=== PATIENT | female | born 1960 | race Caucasian/White ===

== ENCOUNTER 2020-04-17 13:58 | Outpatient (CLI) | payer OTHER, SELFPAY ==
--- NOTE | 2020-04-17 | ECHO_ITS ---
Patient Info Name: Yvrose Medrano Age: 60 years : 1960 Gender: Female Ht: 62 in Wt: 195 lbs BSA: 2.01 m2 HR: 95 bpm BP: 146 / 98 mmHg Heart Rhythm: Sinus Rhythm Technical Quality: Fair Exam Date: 04/17/2020 3:05 PM Exam Location: [facility] Patient Status: Outpatient Admit Date: 04/17/2020 Staff Ordering Physician: Yovanny Ramos MD [employer] Professional: Ena Christie RDCS Attending Provider: Yovanny Ramos MD Referring Physician: Richard MARTINEZ; Exam Type: CA echo doppler color flow Study Info Indications C50.411 - Malignant neoplasm of upper-outer quadrant of right female breast Complete two-dimensional, color flow and Doppler transthoracic echocardiogram is performed. Summary 1. Left ventricular chamber dimension is mildly enlarged. 2. Left ventricular systolic function is normal, estimated at 55-60%. 3. There is no increased left ventricular wall thickness. 4. Left ventricular septal wall motion is normal. 5. The left ventricular diastolic function is normal. 6. Global longitudinal strain is normal at -19 %. 7. Left atrial chamber dimension is mildly enlarged. 8. There is mild mitral valve regurgitation. 9. There is mild tricuspid valve regurgitation. Left Ventricle Left ventricular chamber dimension is mildly enlarged. Left ventricular systolic function is normal, estimated at 55-60%. There is no increased left ventricular wall thickness. Left ventricular septal wall motion is normal. The left ventricular diastolic function is normal. Global longitudinal strain is normal at -19 %. Right Ventricle Right ventricular chamber dimension is normal. Right ventricular systolic function is normal. Left Atria Left atrial chamber dimension is mildly enlarged. Right Atria Right atrial chamber dimension is normal. Atrial Septum Intact interatrial septum visualized by color flow imaging. Aortic Valve The aortic valve is trileaflet. There is mild aortic valve sclerosis. There is no aortic valve stenosis. There is trace aortic valve regurgitation. Pulmonic Valve The pulmonic valve is normal. There is no pulmonic valve stenosis. There is trace pulmonic regurgitation. Mitral Valve The mitral valve has normal leaflets. There is no mitral valve stenosis. There is mild mitral valve regurgitation. Tricuspid Valve The tricuspid valve leaflets are normal. There is no significant tricuspid valve stenosis. There is mild tricuspid valve regurgitation. No pulmonary hypertension, estimated pulmonary arterial systolic pressure is 33 mmHg. Pericardium/Pleural The pericardium appears normal. There is no pericardial effusion. Inferior Vena Cava Normal inferior vena cava with >50% collapse upon inspiration consistent with elevated right atrial pressure, 10 mmHg. Aorta The aortic root size at the sinus of Valsalva is normal. The prox ascending aorta size is normal. Left Ventricular Outflow Tract Name Value Normal LVOT 2D LVOT Diameter 1.9 cm LVOT Doppler LVOT Peak Gradient 3 mmHg LVOT Mean Gradient 2 mmHg
== END 2020-04-17 13:59 | disposition home or self-care (01) ==
LOC: ANHCARD 14:00
PROVIDERS: PCP Emergency Medicine; Visit Provider Internal Medicine Medical Oncology
DX: C50.411 Malignant neoplasm of upper-outer quadrant of right female breast (principal); Z17.0 Estrogen receptor positive status [ER+]
CPT/HCPCS: 93306

== ENCOUNTER 2022-01-11 10:00 | Outpatient (RCR) | payer OTHER, SELFPAY ==
--- NOTE | 2021-10-19 10:11 | PTOPEVAL ---
PHYSICAL THERAPY EVALUATION AND PLAN OF CARE 10-19-21 Thank you for referring Yvrose Medrano to [facility] for the diagnosis of vestibular rehab. She is scheduled to be seen for therapy? 1-2 x/week for 6 weeks. Please review, sign, date and return this plan of care SHALINI. I agree with and certify that the following plan of care is medically necessary. Referring Physician Date Attending Provider: Cathy Penaloza NP PT Outpatient Evaluation Document 10/19/21 09:01 LY (Rec: 10/19/21 10:11 LY [id number]) Past Medical History Source of Past Medical History Patient Neurological History Hx Neurological Disorders No Significant History Cardiovascular History Hx Cardiac Disorders No Significant History Respiratory History Hx Respiratory Disorders No Significant History Gastrointestinal History Hx Gastrointestinal Disorders No Significant History Genitourinary History Hx Genitourinary Disorders No Significant History Musculoskeletal History Hx Other Musculoskeletal Disorders Yes: neck and shoulder pain with long sitting at work Endocrine History Hx Hypothyroidism Yes: monitoring, using supplements to manage HEENT History Hx Deviated Septum Yes: surgery Hx Other HEENT Disorders Yes: sinus issues; ear issues as child Other History Hx Cancer Yes: breast cancer 2x, B mastectomy, radiation & chemotherapy Hx Chemotherapy Yes Hx Radiation Therapy Yes Evaluation Information Problem Diagnosis vestibular rehab Onset May 2021 Prior Level of Function Activity Level (Last 3 Months) 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 Hand Dominance Right Activity of Daily Living Ability Independent Indoor/Home Mobility Independent Community Mobility Independent Stairs Ability Independent Functional Cognition (Planning, Shopping Independent , Taking Medications) Cooking Yes Cleaning Yes Laundry Yes Shopping Yes Driving Yes Comments Additional Prior Level of Function active lifestyle, play drums, Comments do regular fitness exercise and walking Pain Assessment Timing of Pain Assessment Timing of Pain Assessment Assessment Self Report Self Report Pain Level 0 Pain Score Pain Score 0: Self Report Additional Pain Score Comments reports with work, sometimes
--- NOTE | 2021-11-29 16:16 | PTOPEVAL ---
PHYSICAL THERAPY RE-EVALUATION AND UPDATED PLAN OF CARE 11-29-21 Refer to the clinical summary below for her status today, compared to the initial evaluation. The goals were partially achieved. Continue PT treatment 1x/wk for 6 weeks. Thank you for referring Yvrose Medrano to [facility].? Please review, sign, date and return this updated plan of care [facility]. I agree with and certify that the following plan of care is medically necessary. Referring Physician Date Attending Provider: Cathy Penaloza NP *PT Outpatient Re-Evaluation Document 11/29/21 15:29 LY (Rec: 11/29/21 16:16 LY [id number]) Subjective Information Yvrose reports: feel like Query Text:As Reported By Patient/ still off balance, when walk, Family veer to the L; have not had any falls; do not have any vertigo or spinning, have some lightheaded like feelings; to have MRI brain scan in December; completed antibiotics for sinus infections about 1 week ago; recent dental work due to filling of tooth cracked and replaced- no infection; reading tolerance about 30 min , then eyes start to jump and have to rest eyes; Pain Assessment Timing of Pain Assessment Timing of Pain Assessment Assessment Self Report Self Report Pain Level 0 Pain Score Pain Score 0: Self Report Vestibular Evaluation Vestibular Testing Vestibular Testing Comments in standing: -- head still, eyes track R/L x 16 reps, then had loss of balance --head still, eyes track up/ down x 20 reps, then had loss of balance --gaze stabilization walk forward/back with loss balance --gaze stabilization with head turn R/L 4 reps then loss balance --gaze stabilization with head turn up/down x 10 reps then loss of balance positions herself with wide base of support and able to step to regain her balance supine/sit/stand and pao
--- NOTE | 2022-01-11 10:59 | PTOPEVAL ---
PHYSICAL THERAPY DISCHARGE 01-11-22 Refer to the clinical summary below, for her status today, compared to the last reevaluation. The goals were achieved. Yvrose will be discharged from PT services at this time. And is to continue with her Home Exercise program. Thank you for referring Yvrose Medrano to [facility]. Please review, sign, date and return this Discharge Report SHALINI. I agree with and certify that the following plan of care is medically necessary. Referring Physician Date Attending Provider: Cathy Penaloza NP Assessment Status Discharge Subjective Information Yvrose reports: a little Query Text:As Reported By Patient/ better, but still have Family dizziness; about 75% of the way there; doing home exercises; sinus' feel OK today; to see neurologist on February 04; oncologist took me off tamoxifen, to see if that is causing dizziness, been off about one week- not sure if any better or not; walking is better- straighter and not as off balance; no eyes jumping with reading; Pain Assessment Timing of Pain Assessment Timing of Pain Assessment Assessment Self Report Self Report Pain Level 0 Pain Score Pain Score 0: Self Report Vestibular Evaluation Vestibular Testing Vestibular Testing Comments reports: right now feel pretty good, but tiny lightheaded ; over the past week, have been light headed, not have dizzy/head spin feeling; standing: -eye tracking R/L and up/down x 20 reps without loss of balance and no s/s -gaze stabilization with head R/L and up/down without loss of balance and no s/s; walk 50' with head motions R/L and up/down x 5 reps each; single leg standing R and L- 4 reps, unsteady with 3-10 second holds; -standing hip abduction, extension with green theraband R and L x 10 reps with 1 UE hold - tandem daly
== END 2022-01-14 10:34 | disposition home or self-care (01) ==
LOC: ANHPT 10:00
PROVIDERS: PCP Emergency Medicine
DX: H81.399 Other peripheral vertigo, unspecified ear (principal)
CPT/HCPCS: 97110; 97162

== ENCOUNTER → 2022-09-27 09:24 | Outpatient (CLI) | payer OTHER, SELFPAY ==
--- NOTE | ~2022-09-27 | US_ITS ---
EXAMINATION: US thyroid DATE: 09/27/2022 09:49 INDICATION: Thyroid nodule. TECHNIQUE: Multiple ultrasound images of the thyroid were obtained. COMPARISON: Ultrasound 09/17/2017 FINDINGS: The right thyroid lobe measures 3.7 x 2.4 x 0.9 cm. The left thyroid lobe measures 3.6 x 1.5 x 1.1 c m. In the left thyroid lobe, there is a 6 mm solid, hypoechoic, wider than tall nodule with smooth m argin without echogenic foci (TI-RADS TR4). In the thyroid isthmus, there is a 7 mm solid, hypoechoic , wider than tall nodule with ill-defined margin without echogenic foci (TR4). In the right thyroid l obe, there is a 7 mm, solid, hypoechoic, wider than tall nodule with ill-defined margin without echog enic foci (TR4). IMPRESSION: 1. Small thyroid nodules, likely not clinically significant. No follow-up is needed. Reviewed, dictated and finalized at location A. IMPRESSION: 1. Small thyroid nodules, likely not clinically significant. No follow-up is ne eded.
== END ==
PROVIDERS: PCP Nurse Practitioner Family; Visit Provider Nurse Practitioner Family
DX: E04.2 Nontoxic multinodular goiter (principal)
CPT/HCPCS: 76536

== ENCOUNTER 2023-12-12 09:00 | Outpatient (RCR) | payer OTHER, SELFPAY ==
--- NOTE | 2023-10-31 09:57 | OPREHPOC ---
Outpatient Therapy Plan of Care This is a Multidisciplinary Plan of Care that may contain components documented by all disciplines (PT, OT, and ST.) PT Problem 1 PT Problem #1 Knowledge Deficit PT Goal 1 Goal 1* indep with HEP 2*demonstrate good safety awareness with mobility PT Problem 2 PT Problem #2 Impaired Functional Mobil PT Goal 1 Goal pt perform without loss of balance or wobblin* single leg standing R x 6 seconds 2* single leg standing L x 6 seconds 3* 360' x 1 to R 4* 360' x 1 to L 5* stand with small base of support x 10 seconds 6* Edwards balance score of 52/56 7* further testing of vestibular system and BPPV as indicated
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
--- NOTE | 2023-12-12 09:44 | PTOPDC ---
Assessment and note entered by Kailyn Gutierrez, PT Discharge Information Assessment Status Discharge Diagnosis dizziness, BPPV Onset about 1 year ago Subjective Information have been doing good, balance is better; today a little off due to weather change, L ear feels off; have been doing the exercises at home; Reported Pain Level Pain Score 0: Self Report Assessment PT Clinical Summary Yvrose has received 4 PT sessions. Compared to the initial evaluation: improved with Edwards score from 43 to 50/56; education completed for HEP and safety awareness. She has not had any falls; Continues to have issues with single leg standing and eyes closed activities. The goals were partially met. Discharge PT services. She is to continue with her HEP and safety techniques. Plan of Care PT Services Indicated No
== END 2023-12-12 10:10 | disposition home or self-care (01) ==
LOC: ANHPT 09:00
PROVIDERS: PCP Nurse Practitioner Family
DX: H81.11 Benign paroxysmal vertigo, right ear (principal)
CPT/HCPCS: 97110; 97112; 97161; 97530

== ENCOUNTER 2024-01-30 10:07 | Outpatient (CLI) | payer OTHER, SELFPAY ==
--- NOTE | ~2024-01-30 | DEXA_ITS ---
Bone Density Report Name: JON RICHARDSON Age: 63 Sex: Female Ethnicity: White Date of : 1960 Indication: postmenopausal; screening for osteoporosis; cancer; Referring Provider: RAMONA, LEONOR Gtz Study: Bone densitometry was performed. Exam Date: January 30, 2024 Accession number: [id number] Bone Density: Region BMD T-score Z-score Classification AP Spine(L1-L4) 0.953 -0.9 0.8 Normal Femoral Neck (Left) 0.722 -1.1 0.3 Osteopenia Total Hip (Left) 0.930 -0.1 1.0 Normal Femoral Neck (Right) 0.769 -0.7 0.7 Normal Total Hip (Right) 0.929 -0.1 1.0 Normal Total Hip Mean 0.930 -0.1 1.0 Normal World Health Organization criteria for BMD impression classify patients as: Normal (T-score at or above -1.0), Osteopenia (T-score between -1.0 and -2.5), or Osteoporosis (T-score at or below -2.5). Clinical Information Provided by Patient: Has used the following medications: Vitamin D Has the following medical conditions: Cancer Patient maximum height was 64 Menopause Age: 55 Drinks caffeinated beverages Onset of menses at age 16 Number of children 1 Impression: The patient has low bone mass, based on the Left Femoral Neck T-score. Discussion: BONE DENSITY IS LOW AT ONE OR MORE SKELETAL SITES. This patient's lowest T-score is low at one or more skeletal sites. It meets the World Health Organization's (WHO) criteria for ?low bone mass? (T-score between -1.0 and -2.5). The patient's 10-year risk of fracture as calculated by FRAX is less than the threshold where pharmacological therapy is recommended by the National Osteoporosis Foundation (NOF). However, all treatment decisions require clinical judgment and consideration of individual patient factors, including patient preferences, comorbidities, previous drug use, risk factors not captured in the FRAX model (e.g., frailty, falls, vitamin D deficiency, increased bone turnover, interval significant decline in bone density) and possible under or overestimation of fracture risk by FRAX. The patient should follow a healthful lifestyle (good nutrition with adequate calcium and vitamin D, and appropriate weight-bearing exercise). Follow-Up: Consider repeating this study in 2 to 3 years to reassess this patient's status, or sooner if there is some new clinical indication. Reported by: KO on 01/30/2024 10:45:00 AM. Reviewed, dictated and finalized at location AAndressa DOCKERY
== END 2024-01-30 10:08 | disposition home or self-care (01) ==
LOC: ANHIMG 10:10
PROVIDERS: PCP Emergency Medicine; Visit Provider Nurse Practitioner Family
DX: M81.0 Age-related osteoporosis without current pathological fracture (principal); M85.852 Other specified disorders of bone density and structure, left thigh
CPT/HCPCS: 77080

== ENCOUNTER 2024-03-30 15:30 | Outpatient (RCR) | payer OTHER, SELFPAY ==
--- NOTE | 2024-01-30 09:09 | OPREHPOC ---
Outpatient Therapy Plan of Care This is a Multidisciplinary Plan of Care that may contain components documented by all disciplines (PT, OT, and ST.) PT Problem 1 PT Problem #1 Knowledge Deficit PT Goal 1 Goal 1* indep with HEP 2* education on compression garment & lymphedema management PT Problem 2 PT Problem #2 Pain PT Goal 1 Goal 1* pt report pain rating at worst in R arm of 2/10 2* no tenderness reported with palpation over R forearm PT Problem 3 PT Problem #3 Impaired Lymphatic System PT Goal 1 Goal improve lymph flow and decrease lymphedema of both arms and trunk: circumferential measurement up to 40 cm from wrist 1* R 360 cm 2* L 355 cm with palpation, no firmness of tissue 3* R anterior forearm 4* L anterior forearm 5* with palpation over R upper trunk & axilla- minimal movement of tissue vertical measurement of fluid pocket lateral trunk 6* R 4 cm 7* L 3 cm
--- NOTE | 2024-01-30 09:09 | PTOPEVAL1 ---
Assessment and note entered by Kailyn Gutierrez, PT, CLT Evaluation Information Assessment Status Evaluation Diagnosis R UE lymphedema Onset Jan 2024 Subjective Information about one month ago- noticed some swelling in R hand; was playing tug of war with dog, the toy was pulled by dog and her R arm was twisted and jerked; next day back of hand was swollen and rings did not fit; is R handed. is not limited with activity, doing everything, but have annoying pain in arm and trunk. have never had any treatment for lymphedema or swelling in arm before. does arm exercises for fitness, 5# hand weights, push ups, planks- have been doing- not new for her. 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 She is s/p R breast lumpectomy and bilateral mastectomy with radiation and chemotherapy treatments. She has not had any treatment for lymphedema in the past, but feels she has always had wings under her upper arms. Recent onset of swelling on the back of her hand with some pain in forearm and side of trunk. She does not wear any support over her trunk--t shirt only/ no bra. She is R handed and does regular fitness exercises using up to 5# hand weight for arm exercises, but not new activity. She has tattoos over both arms, but most recent one was ~ 5 years ago. With the evaluation: circumferential measurements of arms- R is 5.3 cm larger than the L; firm tissue over both forearms with the R reported tenderness; tightness over R axilla and upper trunk; increase size of both posterior upper arms and pockets of fluid over both upper lateral trunk. Skilled PT
--- NOTE | 2024-02-13 14:31 | PCPTNOTE ---
pt signed consent for release of info to [facility] [employer] for home intermittent compression pump. Faxed info to local rep Rene.
--- NOTE | 2024-02-27 11:50 | PCPTNOTE ---
pt did not show for her appt, called her and she had forgotten about the appointment, has home repair man at her house. She apologized for missing her appt.
--- NOTE | 2024-03-30 16:16 | PTOPDC ---
Assessment and note entered by Kailyn Gutierrez, PT Discharge Information Assessment Status Discharge Diagnosis R UE lymphedema Onset Jan 2024 Subjective Information have the home pump and it is working well; wearing the compression sleeve and glove during day and velcro sleeve at night; Reported Pain Level Pain Score 1: Self Report Additional Pain Score Comments little pressure in R anterior forearm and finger joints sometimes Assessment PT Clinical Summary Yvrose has received a total of 11 PT sessions. Compared to the initial evaluation: circumferential measurements of UE's: R decreased by .2 cm and L increased by 2.9 cm; tissue over R and L forearm has softened--no longer firm to touch; lateral trunk edema vertical measurement on R is the same at 7cm and L decreased by 1 cm to 4 cm; Education completed for lymphedema care/management compression glove and sleeve for R arm, has home intermittent compression pump and skin care. The goals were partially met. Discharge PT services. Plan of Care PT Services Indicated No
== END 2024-03-30 17:11 | disposition home or self-care (01) ==
LOC: ANHPT 15:30
PROVIDERS: PCP Emergency Medicine; Visit Provider Nurse Practitioner Family
DX: I89.0 Lymphedema, not elsewhere classified (principal); C50.411 Malignant neoplasm of upper-outer quadrant of right female breast; Z17.0 Estrogen receptor positive status [ER+]
CPT/HCPCS: 97016; 97110; 97140; 97161; 97530; 99199